=== PATIENT | male | born 1950 | race Caucasian/White ===

== ENCOUNTER 2020-02-11 08:25 | Outpatient (CLI) | payer MEDICARE ==
[2020-02-11 08:59] LABS: ALANINE AMINOTRANSFERASE 15 U/L (12-78); ALBUMIN 3.4 g/dL (3.4-5.0); ANION GAP 6 mmol/L (5-15); CHLORIDE 109 mmol/L (98-107); CHOLESTEROL, TOTAL 154 mg/dL (140-239); CREATININE 0.84 mg/dL (0.7-1.3)
[2020-02-11 09:01] LABS: ALKALINE PHOSPHATASE 96 U/L (45-117); BILIRUBIN,TOTAL 0.7 mg/dL (0.2-1.0); CHOL/HDL RATIO 3.1; HDL CHOL % 32 % (26-37); HDL CHOLESTEROL (DIRECT) 49 mg/dL (40-60); LDL CHOLESTEROL,CALCULATED 80 mg/dL (54-169); LDL/HDL RATIO 1.6 (0.5-3.0); TOTAL PROTEIN 7.8 g/dL (6.4-8.2); TRIGLYCERIDES 124 mg/dL (50-200); VLDL CHOLESTEROL 25 mg/dL (0-25)
== END 2020-02-11 23:59 | disposition home or self-care (01) ==
LOC: CFH 08:25 → LAB 23:59
PROVIDERS: ATTEND Internal Medicine Cardiovascular Disease
DX: E78.2 Mixed hyperlipidemia (principal); R06.02 Shortness of breath; R07.89 Other chest pain; R55 Syncope and collapse
CPT/HCPCS: 36415; 80053; 80061

== ENCOUNTER → 2020-02-14 | Outpatient (CLI) | payer MEDICARE | END | disposition home or self-care (01) | LOC: CVU 10:22 | PROVIDERS: ATTEND Internal Medicine Cardiovascular Disease | DX: I08.8 Other rheumatic multiple valve diseases (principal); I25.10 Atherosclerotic heart disease of native coronary artery without angina pectoris; Z82.49 Family history of ischemic heart disease and other diseases of the circulatory system | CPT/HCPCS: 93306 ==